=== PATIENT | female | born 1960 | race Caucasian/White ===

== ENCOUNTER 2016-08-25 07:59 | Emergency (ER) | payer OTHER ==
[~2016-08-25] VITALS: Ht 167.6 cm; Wt 73.6 kg
[2016-08-25 08:27] VITALS: BP 141/90
== END 2016-08-25 09:31 | disposition home or self-care (01) ==
LOC: EMS 08:01
DX: B86 Scabies (principal); Z88.6 Allergy status to analgesic agent
CPT/HCPCS: 99281; 99282